=== PATIENT | male | born 1970 | race Caucasian/White ===

== ENCOUNTER 2017-12-08 21:04 | Emergency (ER) | payer OTHER ==
[~2017-12-08] VITALS: Ht 170.2 cm; Wt 69.1 kg
[~2017-12-08 21:04] MED LIST: TRILEPTAL150 MG PO
[2017-12-08 23:13] VITALS: BP 133/95
== END 2017-12-08 23:16 | disposition home or self-care (01) ==
LOC: EME 21:04
DX: J34.89 Other specified disorders of nose and nasal sinuses (principal); F10.129 Alcohol abuse with intoxication, unspecified; W18.30XA Fall on same level, unspecified, initial encounter; Y92.511 Restaurant or cafe as the place of occurrence of the external cause; Z53.21 Procedure and treatment not carried out due to patient leaving prior to being seen by health care provider
CPT/HCPCS: 99281; 99284

== ENCOUNTER 2017-12-08 23:36 | Emergency (ER) | payer OTHER ==
[~2017-12-08] VITALS: Ht 167.6 cm; Wt 68.1 kg
[2017-12-09 03:26] VITALS: BP 163/87
== END 2017-12-09 03:29 | disposition home or self-care (01) ==
LOC: EXP 23:36 → EME 23:36 → EXP 12-09 03:29
DX: S02.2XXA Fracture of nasal bones, initial encounter for closed fracture (principal); F10.129 Alcohol abuse with intoxication, unspecified; W18.30XA Fall on same level, unspecified, initial encounter; Y92.511 Restaurant or cafe as the place of occurrence of the external cause; Y99.0 Civilian activity done for income or pay
CPT/HCPCS: 70450; 99281; 99283